=== PATIENT | female | born 1985 | race Caucasian/White ===

== ENCOUNTER 2019-08-27 16:25 | Emergency (ER) | payer MEDICAID, OTHER ==
[2019-08-27] MEDS ORDERED: PANTOPRAZOLE SODIUM 40 MG PACKET.DR NG ONE (18:22)
[2019-08-27] MEDS ORDERED: ONDANSETRON 4 MG TAB.RAPDIS PO ONE (18:22)
--- NOTE | 2019-08-27 18:24 | ER Document Report ---
ED Medical Screen (RME) - General Chief Complaint: Flu Symptoms Stated Complaint: COUGH,CONGESTION,BLOOD IN SPUTUM Time Seen by Provider: 08/27/19 18:18 Notes: HPI: 33-year-old female presenting to the emergency department complaining of cough, nausea, vomiting over the last 3 days. Patient states that she did go to a urgent care today and was diagnosed with flu. Patient's daughter also sick with flu. Patient has been having multiple episodes of vomiting after coughing. States she started seeing some blood in her emesis after the coughing episodes. Complains of pain and soreness to the chest wall from coughing I have greeted and performed a rapid initial assessment of this patient. A comprehensive ED assessment and evaluation of the patient, analysis of test results and completion of the medical decision making process will be conducted by additional ED providers PHYSICAL EXAMINATION: GENERAL: Well-appearing, well-nourished and in mild acute distress. HEAD: Atraumatic, normocephalic. EYES: sclera anicteric, conjunctiva are normal. ENT: Moist mucous membranes. NECK: Normal range of motion LUNGS: Normal work of breathing, clear to auscultation. Mild tenderness on palpation of the chest wall HEART: 2+ radial pulses bilaterally, mild tachycardia ABD: limited by positioning for exam in triage. Minimal epigastric tenderness on palpation EXTREMITIES: no pitting or edema. No cyanosis. NEUROLOGICAL: No focal neurological deficits. Moves all extremities spontaneously and on command. PSYCH: Normal mood, normal affect. SKIN: Warm, Dry, normal turgor, no rashes or lesions noted. TRAVEL OUTSIDE OF THE [place] IN LAST 30 DAYS: No - Related Data Allergies/Adverse Reactions: No Known Allergies Allergy (Verified 08/27/19 18:17) Past Medical History - Social History Frequency of alcohol use: None Drug Abuse: None Physical Exam - Vital signs Vitals: Temp Pulse Resp BP Pulse Ox 98.6 F 87 18 132/85 H 96 08/27/19 17:23 08/27/19 17:23 08/27/19 17:23 08/27/19 17:23 08/27/19 17:23 Course - Vital Signs Vital signs: Temp Pulse Resp BP Pulse Ox 98.6 F 87 18 132/85 H 96 08/27/19 17:23 08/27/19 17:23 08/27/19 17:23 08/27/19 17:23 08/27/19 17:23
--- NOTE | 2019-08-27 18:52 | RADIOLOGY REPORT (SQ) ---
EXAM DESCRIPTION: CHEST 2 VIEWS COMPLETED DATE/TIME: 08/27/2019 6:39 pm REASON FOR STUDY: cough COMPARISON: None. EXAM PARAMETERS: NUMBER OF VIEWS: two views TECHNIQUE: Digital Frontal and Lateral radiographic views of the chest acquired. RADIATION DOSE: NA LIMITATIONS: none FINDINGS: LUNGS AND PLEURA: No opacities, masses or pneumothorax. No pleural effusion. MEDIASTINUM AND HILAR STRUCTURES: No masses or contour abnormalities. HEART AND VASCULAR STRUCTURES: Heart normal size. No evidence for failure. BONES: No acute findings. HARDWARE: None in the chest. OTHER: No other significant finding. IMPRESSION: NO ACUTE RADIOGRAPHIC FINDING IN THE CHEST. TECHNICAL DOCUMENTATION: JOB ID: [id number] [employer]- All Rights Reserved Reading location - IP/workstation name: [email or web address]
[2019-08-27 19:00] LABS: ABSOLUTE LYMPHOCYTES (AUTO) 0.8 10^3/uL (0.5-4.7); ABSOLUTE MONOCYTES (AUTO) 0.5 10^3/uL (0.1-1.4); ABSOLUTE NEUT (AUTO) 4.8 10^3/uL (1.7-8.2); BASOPHILS % (AUTO) 0.2 % (0-2); EOSINOPHILS % (AUTO) 0.2 % (0-6); HEMATOCRIT 43.4 % (36.0-47.0); LYMPHOCYTES % (AUTO) 13.5 % (13-45); MEAN CORPUSCULAR HEMOGLOBIN 29.7 pg (27.0-33.4); MEAN CORPUSCULAR HGB CONC 34.5 g/dL (32.0-36.0); MEAN CORPUSCULAR VOLUME 86 fl (80-97); MONOCYTES % (AUTO) 7.8 % (3-13); PLATELET COUNT 167 10^3/uL (150-450); RED BLOOD COUNT 5.04 10^6/uL (3.72-5.28); RED CELL DISTRIBUTION WIDTH 14.2 % (11.5-14.0); SEGMENTED NEUTROPHILS % (AUTO) 78.3 % (42-78); TOTAL CELLS COUNTED % (AUTO) 100 %; WHITE BLOOD COUNT 6.1 10^3/uL (4.0-10.5)
[2019-08-27 19:10] LABS: INTERNATIONAL RATION (INR) 1.01; PROTHROMBIN TIME 13.4 SEC (11.4-15.4)
[2019-08-27 19:20] LABS: ALBUMIN 4.4 g/dL (3.5-5.0); ALKALINE PHOSPHATASE 92 U/L (38-126); ANION GAP 11 (5-19); ASPARTATE AMINO TRANSFERASE 93 U/L (14-36); BILIRUBIN,TOTAL 0.3 mg/dL (0.2-1.3); BLOOD UREA NITROGEN 16 mg/dL (7-20); CALCIUM 9.1 mg/dL (8.4-10.2); CARBON DIOXIDE 28 mmol/L (22-30); CHLORIDE 98 mmol/L (98-107); GLUCOSE 236 mg/dL (75-110); POTASSIUM 3.5 mmol/L (3.6-5.0); TOTAL PROTEIN 7.6 g/dL (6.3-8.2)
[2019-08-27] MEDS ORDERED: ALBUTEROL SULFATE HFA (90 MCG/PUFF) 8 GM MDI (1 MDI/ER DISP) IH PRN (20:22)
--- NOTE | 2019-08-27 20:28 | ER Document Report ---
HPI - HPI Time Seen by Provider: 08/27/19 18:18 Pain Level: 2 Notes: See RME note for history and physical. A 33-year-old female tentatively diagnosed with flu today with multiple episodes of posttussive vomiting saw some blood in her vomitus or emesis. Patient likely has a mild esophageal variceal tear from the coughing. Her chest x-ray did not show evidence of pneumonia. Will give patient albuterol inhaler for cough. Will place patient on a course of Protonix but her lab work is otherwise stable. Will give return instructions. Will also place patient on Zofran for nausea Past Medical History - Social History Smoking Status: Current Every Day Smoker Frequency of alcohol use: None Drug Abuse: None Family History: Reviewed & Not Pertinent Patient has suicidal ideation: No Patient has homicidal ideation: No Vertical Provider Document - INFECTION CONTROL TRAVEL OUTSIDE OF THE [place] IN LAST 30 DAYS: No Course - Vital Signs Vital signs: Temp Pulse Resp BP Pulse Ox 98.6 F 87 18 132/85 H 96 08/27/19 17:23 08/27/19 17:23 08/27/19 17:23 08/27/19 17:23 08/27/19 17:23 - Laboratory Result Diagrams: 08/27/19 18:30 08/27/19 18:30 Laboratory results interpreted by me: 08/27/19 08/27/19 18:30 18:30 RDW 14.2 H Seg Neutrophils % 78.3 H Potassium 3.5 L Glucose 236 H AST 93 H ALT 64 H Discharge - Discharge Clinical Impression: Viral URI with cough, Post-tussive emesis Condition: Stable Disposition: HOME, SELF-CARE Additional Instructions: Use the albuterol inhaler to help with coughing. Take Zofran for nausea vomiting. Take Protonix to help with stomach inflammation. Your chest x-ray did not show evidence of infiltrate or pneumonia. Your lab work did not show any acute abnormalities. Follow-up closely with your primary care provider for reevaluation of symptoms call for appointment Prescriptions: Guaifenesin/Dextromethorphan [Mucinex Dm ER 600-30 mg Tablet] 1 each PO BID #20 tab.er.12h Pantoprazole Sodium [Protonix [address] Tablet] 20 mg PO DAILY #30 tablet. Ondansetron [Zofran Odt 4 mg Tablet] 1 - 2 tab PO Q4H PRN #15 tab.rapdis PRN Reason: For Nausea/Vomiting Referrals: MARILU MOSES MD [ACTIVE STAFF] - Follow up as needed
[2019-08-27 21:54] VITALS: BP 137/92
== END 2019-08-27 21:57 | disposition home or self-care (01) ==
LOC: ER 16:25
DX: J06.9 Acute upper respiratory infection, unspecified (principal); B97.89 Other viral agents as the cause of diseases classified elsewhere; R11.10 Vomiting, unspecified; F17.200 Nicotine dependence, unspecified, uncomplicated
CPT/HCPCS: 99283; 36415; 85025; 85610; 80053; 71046; S0119; J3490